=== PATIENT | female | born 1985 | race Caucasian/White ===

== ENCOUNTER 2021-09-25 12:12 | Emergency (ER) | payer SELFPAY | END 2021-09-25 14:11 | disposition home or self-care (01) | LOC: ERS 12:12 | DX: S60.222A Contusion of left hand, initial encounter (principal); G43.909 Migraine, unspecified, not intractable, without status migrainosus; F17.210 Nicotine dependence, cigarettes, uncomplicated; W22.8XXA Striking against or struck by other objects, initial encounter ==